=== PATIENT | male | born 1985 | race American Indian/Alaskan Native ===

== ENCOUNTER 2021-10-22 09:37 | Outpatient (CLI) | payer MEDICAID ==
[2021-10-22] MEDS ORDERED: SILVER NITRATE APPLICATOR 1 EA TP ONE ×2 (10:06→10:28)
[2021-10-22] MEDS ORDERED: LIDOCAINE (4%) 40 MG/ML TOPICAL SOLN 50 ML BOTTLE TP ONE (10:06)
== END 2021-10-22 09:38 | disposition home or self-care (01) ==
LOC: WOUND 09:37
PROVIDERS: ATTEND Surgery
DX: L73.2 Hidradenitis suppurativa (principal); Z93.0 Tracheostomy status
CPT/HCPCS: 17250; G0463; 99213

== ENCOUNTER 2021-12-12 11:30 | Outpatient (CLI) | payer MEDICAID ==
[2021-12-12 12:33] LABS: Hematocrit 34.6 % (35.5-45.6); Hemoglobin 12.1 gm/dl (11.8-15.2); Mean Corpuscular HGB Conc 35 % (32-34); Mean Corpuscular Volume 76 fl (84-94); Platelet Count 625 K/mm3 (140-440); Red Blood Count 4.53 M/mm3 (3.65-5.03)
[2021-12-12 12:37] LABS: ABG Base Excess -0.4 mmol/L (-2.0-3.0); ABG HCO3 23.9 mmol/L (20.0-26.0); ABG Methemoglobin 0.4 % (0.0-1.5); ABG PCO2 37.9 mm Hg; ABG PH 7.418 pH Units (7.350-7.450); ABG PO2 70.1 mm Hg (80.0-90.0)
[2021-12-12 12:39] LABS: Red Cell Distribution Width 20.4 % (13.2-15.2)
[2021-12-12 12:57] LABS: Alanine Aminotransferase 47 units/L (7-56); Albumin 3.5 g/dL (3.9-5); BUN/Creatinine Ratio 15; Blood Urea Nitrogen 20 mg/dL (9-20); Calcium 9.9 mg/dL (8.4-10.2); Chol/HDL Ratio 3.91 %; HDL Cholesterol 36 mg/dL (40-59); Hemolysis Index 0; LDL Cholesterol,Direct 80 mg/dL (50-130)
--- NOTE | 2021-12-12 14:06 | XRay Report ---
CHEST 2 VIEWS INDICATION / CLINICAL INFORMATION: F/U ON COVID PHENOMNIA Z86.16. COMPARISON: 08/30/2021 FINDINGS: SUPPORT DEVICES: None. HEART / MEDIASTINUM: No significant abnormality. LUNGS / PLEURA: No significant pulmonary or pleural abnormality. No pneumothorax. ADDITIONAL FINDINGS: No significant additional findings. IMPRESSION: 1. No acute findings. Interval improvement in aeration of the bilateral lungs compared to reference from August 2021. Signer Name: Tej Parekh MD Signed: 12/12/2021 2:01 PM Workstation Name: [employer]
== END 2021-12-12 11:31 | disposition home or self-care (01) ==
LOC: XRAY 11:30
PROVIDERS: ATTEND Internal Medicine
DX: J18.9 Pneumonia, unspecified organism (principal); J45.909 Unspecified asthma, uncomplicated; Z86.16 Personal history of COVID-19; Z86.711 Personal history of pulmonary embolism
CPT/HCPCS: 36415; 36600; 71046; 80053; 80061; 82550; 82728; 82803; 83615; 84436; 84443; 84484; 85027; 85379; 86140